=== PATIENT | male | born 1960 | race Caucasian/White ===

== ENCOUNTER 2017-07-12 18:31 | Emergency (ER) | payer MEDICARE, OTHER ==
[~2017-07-12] VITALS: Ht 175.3 cm; Wt 100.0 kg
[2017-07-12 18:35] VITALS: BP 161/104; PULSE 64; RESP 26; TEMP 97.8; O2SAT 99
--- NOTE | 2017-07-12 19:04 | PD ---
Physical Exam Date Seen by Provider: Jul 12, 2017 Time Seen by Provider: 19:02 Narrative 57 yo male here for evaluation of possible kidney stone. Has left flank pain. History of this in the past. Pain is 10/10. Nausea and vomit. No BM issues. Vitals are stable in triage. Awaiting bed placement. Data Data Last Documented VS Vital Signs Date Time Temp Pulse Resp B/P (MAP) Pulse Ox O2 Delivery O2 Flow Rate FiO2 07/12/17 18:35 97.8 64 26 161/104 (123) 99 Room Air [facility] Medical Record Reviewed: Yes Supervised Visit with ARY: No Lan Morejon Jul 12, 2017 19:04
[2017-07-12] MEDS ORDERED: FENO145T2 PO (20:20)
[2017-07-12] MEDS ORDERED: FLUTI110I INH (20:20)
[2017-07-12] MEDS ORDERED: METH-759 PO (20:20)
[2017-07-12] MEDS ORDERED: VIAG100T PO (20:20)
[2017-07-12] MEDS ORDERED: POLY17S PO (20:20)
[2017-07-12] MEDS ORDERED: LYRI200C PO (20:20)
[2017-07-12] MEDS ORDERED: RIZA10TA2 PO (20:20)
[2017-07-12] MEDS ORDERED: DILA2TAB2 PO (20:20)
[2017-07-12] MEDS ORDERED: TAMS0.4C4 PO (20:20)
[2017-07-12] MEDS ORDERED: OXYC-259 PO (20:20)
[2017-07-12] MEDS ORDERED: MARIJUANA PO (20:20)
[2017-07-12] MEDS ORDERED: ACTO150T PO (20:20)
[2017-07-12] MEDS ORDERED: SODIUM CHLORIDE 0.9% FLUSH 10 ML FLUSH IVF PRN (21:00)
[2017-07-12] MEDS ORDERED: KETOROLAC TROMETHAMINE 30 MG/ML (IVP) VIAL IVP ONE (21:00)
[2017-07-12] MEDS ORDERED: ONDANSETRON HCL 4 MG/2 ML VIAL IVP ONE (21:00)
--- NOTE | 2017-07-12 21:07 | PD ---
HPI Chief Complaint: Flank/Kidney Pain Time Seen by Provider: 20:42 Travel History International Travel<30 days: No Contact w/Intl Traveler<30days: No Traveled to known affect area: No History of Present Illness HPI 57-year-old male with PMH of chronic pain, kidney stones presents to the ED for evaluation of 07/12 left-sided flank pain. Sudden onset at 3 PM this today. Accompanied by nausea and vomiting. Patient denies fever, chills, changes in appetite, changes in bowel habits, penile discharge, dysuria. He states that he was recently diagnosed with a right kidney stone at [facility] in [place]. He states that he has outpatient follow-up with the urologist tomorrow at 1:30 PM. He states that his is working in the area and he came down to visit today. He treated at home with 2 mg Dilaudid by mouth with no improvement of symptoms. 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) Social History Alcohol Use: No Tobacco Use: No Substance Use: No Allergies-Medications (Allergen,Severity, Reaction): Coded Allergies: morphine (Verified Allergy, Severe, Itching, 07/12/17) single dose morphine is no issue, multiple doses and he has itching Reported Meds & Prescriptions Reported Meds & Active Scripts Active Reported [Marijuana] 40 Ml PO Relistor (Methylnaltrexone [place]) 150 Mg Tab 450 Mg PO DAILY Polyethylene Glycol 3350 Powder (Polyethylene Glycol) 17 Gram Pow 17 Gm PO DAILY Lyrica (Pregabalin) 200 Mg Cap 200 Mg PO BID Dilaudid (Hydromorphone HCl) 2 Mg Tab 2 Mg PO Q4H PRN Oxycontin (Oxycodone HCl) 10 Mg Tab 20 Mg PO Q12HR Flovent Hfa 12 GM Inh (Fluticasone Propionate) 110 Mcg/Act Inh 2 Puff INH Q6HR Actonel (Risedronate) 150 Mg Tab 150 Mg PO Q30D Rizatriptan (Rizatriptan Benzoate) 10 Mg Tab 1 Tab PO DAILY Viagra (Sildenafil Citrate) 100 Mg Tab 100 Mg PO DAILY PRN Tamsulosin (Tamsulosin HCl) 0.4 Mg Cap 0.4 Mg PO HS Fenofibrate 145 Mg Tab 145 Mg PO DAILY Review of Systems Except as stated in HPI: all other systems reviewed are Neg Physical Exam Narrative GENERAL: Well-nourished, well-developed white male, lying on his left side in no acute distress. SKIN: Focused skin assessment warm/dry. HEAD: Normocephalic. EYES: No scleral icterus. No injection or drainage. NECK: Supple, trachea midline. No JVD or lymphadenopathy. CARDIOVASCULAR: Regular rate and rhythm without murmurs, gallops, or rubs. RESPIRATORY: Breath sounds clear and equal bilaterally. No accessory muscle use. GASTROINTESTINAL: Abdomen soft, nondistended. Mildly tender to palpation in the LLQ. MUSCULOSKELETAL: No cyanosis, or edema. BACK: Nontender without obvious deformity. No CVA tenderness. Data Data Last Documented VS Vital Signs Date Time Temp Pulse Resp B/P (MAP) Pulse Ox O2 Delivery O2 Flow Rate FiO2 07/12/17 22:53 60 16 111/64 (80) 93 Room Air 07/12/17 18:35 97.8 Orders Orders Basic Metabolic Panel (Bmp) (07/12/17 20:55) Complete Blood Count With Diff (07/12/17 20:55) Ua Includes Microscopic (07/12/17 20:55) Ct Abd/Pel W/O Iv Contrast (07/12/17 20:55) Ketorolac Inj (Toradol Inj) (07/12/17 21:00) Ondansetron Inj (Zofran Inj) (07/12/17 21:00) Sodium Chloride 0.9% Flush (Ns Flush) (07/12/17 21:00) ^ Insert Iv (07/12/17 20:55) Hydromorphone Pf Inj (Dilaudid Pf Inj) (07/12/17 22:00) Sodium Chlorid 0.9% 500 Ml Inj (Ns 500 M (07/12/17 22:00) Radiology Film Requests (07/12/17 ) Labs Laboratory Tests Test 07/12/17 21:15 07/12/17 22:40 White Blood Count 11.0 TH/MM3 Red Blood Count 4.77 MIL/MM3 Hemoglobin 13.6 GM/DL Hematocrit 42.0 % Mean Corpuscular Volume 88.1 FL Mean Corpuscular Hemoglobin 28.5 PG Mean Corpuscular Hemoglobin Concent 32.4 % Red Cell Distribution Width 13.7 % Platelet Count 282 TH/MM3 Mean Platelet Volume 9.7 FL Neutrophils (%) (Auto) 84.1 % Lymphocytes (%) (Auto) 8.9 % Monocytes (%) (Auto) 5.9 % Eosinophils (%) (Auto) 0.8 % Basophils (%) (Auto) 0.3 % Neutrophils # (Auto) 9.3 TH/MM3 Lymphocytes # (Auto) 1.0 TH/MM3 Monocytes # (Auto) 0.6 TH/MM3 Eosinophils # (Auto) 0.1 TH/MM3 Basophils # (Auto) 0.0 TH/MM3 CBC Comment DIFF FINAL Differential Comment Blood Urea Nitrogen 21 MG/DL Creatinine 1.35 MG/DL Random Glucose 97 MG/DL Calcium Level 10.1 MG/DL Sodium Level 138 MEQ/L Potassium Level 3.8 MEQ/L Chloride Level 105 MEQ/L Carbon Dioxide Level 25.7 MEQ/L Anion Gap 7 MEQ/L Estimat Glomerular Filtration Rate 55 ML/MIN MDM Medical Decision Making Medical Screen Exam Complete: Yes Emergency Medical Condition: Yes Differential Diagnosis Pyelonephritis versus diverticulitis versus nephroureterolithiasis versus drug seeking behavior versus other Narrative Course 57-year-old male with PMH of chronic pain, kidney stones presents to the ED for evaluation of 10/10 left-sided flank pain. Sudden onset at 3 PM this today. Accompanied by nausea and vomiting. Patient denies fever, chills, changes in appetite, changes in bowel habits, penile discharge, dysuria. He states that he was recently diagnosed with a right kidney stones with hydronephrosis at [facility] in [place]. He states that he has outpatient follow-up with the urologist tomorrow at 1:30 PM. He states that his is working in the area and he came down to visit today. He treated at home with 2 mg Dilaudid by mouth with no improvement of symptoms. He takes Flomax daily for BPH. He is hypertensive in triage, resolved in the exam room. Physical exam reveals a nontoxic-appearing white male in no acute distress. There is some mild tenderness in the left lower quadrant and left flank but no CVA tenderness. IV was established. Patient was administered 30 mg Toradol IV, 1 mg Dilaudid IV. CBC: No leukocytosis noted CMP: BUN 21. Creatinine 1.35. GFR 55 UA: pending CT abdomen and pelvis: Right sided hydronephrosis with a 1 cm stone, possibly 2 separate stones measuring 1 cm total at the right UPJ. 5 mm stone at the left UVJ with mild hydroureter nephrosis. On recheck he reports improvement of his pain. I discussed the results of the workup with the patient. He states that he has follow-up with urology in [place] tomorrow and would like to keep that appointment. I informed him that I would not prescribe him any pain medications. He is agreeable to this plan. UA is pending. Patient was provided a CD copy of his CT report. Patient is signed out to Dr. Oliver at shift change. See her note for disposition. Alma Santa Jul 12, 2017 21:07
--- NOTE | 2017-07-12 21:36 | RADRPT ---
EXAM DATE/TIME: 07/12/2017 21:12 [facility] COMPARISON: No previous studies available for comparison. INDICATIONS : Left flank pain. ORAL CONTRAST: No oral contrast ingested. RADIATION DOSE: 15.94 CTDIvol (mGy) MEDICAL HISTORY : Renal calculi. SURGICAL HISTORY : Fusion, cervical. ENCOUNTER: Initial ACUITY: 1 day PAIN SCALE: 10/10 LOCATION: Left flank TECHNIQUE: Volumetric scanning of the abdomen and pelvis was performed. Using automated exposure control and ad justment of the mA and/or kV according to patient size, radiation dose was kept as low as reasonably achievable to obtain optimal diagnostic quality images. DICOM format image data is available electro nically for review and comparison. The lack of IV contrast limits the diagnosis for certain organ pa thology. FINDINGS: LOWER LUNGS: The visualized lower lungs are clear. LIVER: Homogeneous density without lesion. There is no dilation of the biliary tree. No calcified gallston es. SPLEEN: Normal size without lesion. PANCREAS: Within normal limits. KIDNEYS: There is hydronephrosis of the right kidney. There is several tiny calcified right renal stones. The largest measures about 4 mm in the midpole. There is a prominent stone in the proximal right ureter m easuring at least 1 cm. On the coronal images, there may be 2 stones adjacent to another. The rest of the right ureter is nondilated. There is mild hydronephrosis the left kidney. A few tiny stones are also seen in the left kidney. There appears to be and a 5 mm stone in the distal left ureter. ADRENAL GLANDS: Within normal limits. VASCULAR: There is no aortic aneurysm. BOWEL/MESENTERY: The stomach, small bowel, and colon demonstrate no acute abnormality. There is no free intraperitone al air or fluid. No inflammatory changes. ABDOMINAL WALL: Within normal limits. RETROPERITONEUM: There is no lymphadenopathy. BLADDER: No wall thickening or mass. REPRODUCTIVE: Within normal limits. INGUINAL: There is no lymphadenopathy or hernia. MUSCULOSKELETAL: Within normal limits for patient age. CONCLUSION: 1. There is hydronephrosis the right kidney. There is a 1 cm stone in the proximal right ureter just past the UPJ causing obstruction. On the coronal images, there may be 2 stones adjacent to another in the proximal right ureter.. 2. There is a 5 mm stone in the distal left ureter at the left UVJ. Mild hydronephrosis the left kidn ey. 3. Several tiny nonobstructing bilateral renal calculi are demonstrated. Alex Liu MD on July 12, 2017 at 21:30 Board Certified Radiologist. This report was verified electronically.
[2017-07-12 21:38] LABS: BICARBONATE 25.7 MEQ/L (21.0-32.0); POTASSIUM 3.8 MEQ/L (3.5-5.1)
[2017-07-12 21:45] LABS: AUTOMATED NEUTROPHIL # 9.3 TH/MM3 (1.8-7.7); BASOPHIL % 0.3 % (0.0-2.0); EOSINOPHIL # 0.1 TH/MM3 (0-0.4); EOSINOPHIL % 0.8 % (0.0-4.0); HEMO FLAGS DIFF FINAL; LYMPH % 8.9 % (9.0-44.0); MEAN CELL VOLUME 88.1 FL (80.0-100.0); MEAN CORPUSCULAR HEMOGLOBIN 28.5 PG (27.0-34.0); MEAN CORPUSCULAR HGB CONC 32.4 % (32.0-36.0); MONO % 5.9 % (0.0-8.0); NEUT % 84.1 % (16.0-70.0); PLATELET COUNT 282 TH/MM3 (150-450); RED BLOOD COUNT 4.77 MIL/MM3 (4.50-5.90); RED CELL DISTRIBUTION WIDTH 13.7 % (11.6-17.2)
[2017-07-12] MEDS ORDERED: HYDROmorphone HCL PF 1 MG/ML VIAL IV PUSH ONE (22:00)
[2017-07-12] MEDS ORDERED: SODIUM CHLORID 0.9% 500 ML INJ 500 ML IV ONE (22:00)
[2017-07-12 22:53] VITALS: BP 111/64; PULSE 60; RESP 16; O2SAT 93
[2017-07-12 23:02] LABS: BLOOD, URINE SMALL (NEG); GLUCOSE,URINE NEG (NEG); KETONE, URINE NEG (NEG); NITRITE,URINE NEG (NEG); PH, URINE 5.5 (5.0-8.5); URINE COLOR YELLOW (YELLW/STRAW)
--- NOTE | 2017-07-12 23:06 | PD ---
Physical Exam Date Seen by Provider: Jul 12, 2017 Time Seen by Provider: 22:58 Narrative accepted in transfer of care from Alma Santa PA-C Data Data Last Documented VS Vital Signs Date Time Temp Pulse Resp B/P (MAP) Pulse Ox O2 Delivery O2 Flow Rate FiO2 07/13/17 00:41 07/12/17 22:53 60 16 93 Room Air 07/12/17 18:35 97.8 Orders Orders Basic Metabolic Panel (Bmp) (07/12/17 20:55) Complete Blood Count With Diff (07/12/17 20:55) Ua Includes Microscopic (07/12/17 20:55) Ct Abd/Pel W/O Iv Contrast (07/12/17 20:55) Ketorolac Inj (Toradol Inj) (07/12/17 21:00) Ondansetron Inj (Zofran Inj) (07/12/17 21:00) Sodium Chloride 0.9% Flush (Ns Flush) (07/12/17 21:00) ^ Insert Iv (07/12/17 20:55) Hydromorphone Pf Inj (Dilaudid Pf Inj) (07/12/17 22:00) Sodium Chlorid 0.9% 500 Ml Inj (Ns 500 M (07/12/17 22:00) Radiology Film Requests (07/12/17 ) Urine Culture (07/12/17 23:20) Levofloxacin (Levaquin) (07/12/17 23:30) Ed Discharge Order (07/12/17 23:55) Labs Laboratory Tests Test 07/12/17 21:15 07/12/17 22:40 White Blood Count 11.0 TH/MM3 Red Blood Count 4.77 MIL/MM3 Hemoglobin 13.6 GM/DL Hematocrit 42.0 % Mean Corpuscular Volume 88.1 FL Mean Corpuscular Hemoglobin 28.5 PG Mean Corpuscular Hemoglobin Concent 32.4 % Red Cell Distribution Width 13.7 % Platelet Count 282 TH/MM3 Mean Platelet Volume 9.7 FL Neutrophils (%) (Auto) 84.1 % Lymphocytes (%) (Auto) 8.9 % Monocytes (%) (Auto) 5.9 % Eosinophils (%) (Auto) 0.8 % Basophils (%) (Auto) 0.3 % Neutrophils # (Auto) 9.3 TH/MM3 Lymphocytes # (Auto) 1.0 TH/MM3 Monocytes # (Auto) 0.6 TH/MM3 Eosinophils # (Auto) 0.1 TH/MM3 Basophils # (Auto) 0.0 TH/MM3 CBC Comment DIFF FINAL Differential Comment Blood Urea Nitrogen 21 MG/DL Creatinine 1.35 MG/DL Random Glucose 97 MG/DL Calcium Level 10.1 MG/DL Sodium Level 138 MEQ/L Potassium Level 3.8 MEQ/L Chloride Level 105 MEQ/L Carbon Dioxide Level 25.7 MEQ/L Anion Gap 7 MEQ/L Estimat Glomerular Filtration Rate 55 ML/MIN Urine Color YELLOW Urine Turbidity CLEAR Urine pH 5.5 Urine Specific [place] 1.014 Urine Protein NEG mg/dL Urine Glucose (UA) NEG mg/dL Urine Ketones NEG mg/dL Urine Occult Blood SMALL Urine Nitrite NEG Urine Bilirubin NEG Urine Urobilinogen LESS THAN 2.0 MG/DL Urine Leukocyte Esterase TRACE Urine RBC 12 /hpf Urine WBC 9 /hpf MDM Medical Record Reviewed: Yes Supervised Visit with ARY: Yes Interpretation(s) UA: 9 wbc's cx ordered Last Impressions Abdomen/Pelvis CT 07/12/172054 Signed Impressions: Service Date/Time: Wednesday, July 12, 2017 21:12 - CONCLUSION: 1. There is hydronephrosis the right kidney. There is a 1 cm stone in the proximal right ureter just past the UPJ causing obstruction. On the coronal images, there may be 2 stones adjacent to another in the proximal right ureter.. 2. There is a 5 mm stone in the distal left ureter at the left UVJ. Mild hydronephrosis the left kidney. 3. Several tiny nonobstructing bilateral renal calculi are demonstrated. Alex Liu MD CBC & BMP Diagram 07/12/17 21:15 Calcium Level 10.1 Vital Signs Date Time Temp Pulse Resp B/P (MAP) Pulse Ox O2 Delivery O2 Flow Rate FiO2 07/12/17 22:53 60 16 111/64 (80) 93 Room Air 07/12/17 20:08 67 15 07/12/17 18:35 97.8 64 26 161/104 (123) 99 Room Air Differential Diagnosis Renal colic, obstructive uropathy, UTI, pyelonephritis, renal insufficiency, sepsis Narrative Course Patient with history of kidney stones with recent diagnosis within the past 3 week of obstructive uropathy on the right being followed closely by his primary urologist. Patient visiting [facility] and developed left flank pain identified here to have a 5 mm distal ureteral stone with mild hydronephrosis. Patient has had symptom relief with Toradol fluids and one time dose of Dilaudid. Patient is desirous of being discharged from the hospital in order to keep his plan/schedule appointment with his local urologist tomorrow. Appointment is scheduled at 1:30 PM. Patient does not report has not reported any fever or chills and is currently not taking any antibiotic. Patient identified on urinalysis to have 9 WBCs therefore culture has been ordered; patient given first dose of antibiotic in the emergency department; patient reports he has an appointment with his urologist and would rather be seen by his urologist and stay for admission; patient given Levaquin 500 mg times one dose. Patient is otherwise stable for outpatient management and close follow-up with his urologist. Patient encouraged to return the emergency department for any concerns or change in his scheduled appointment with his urologist. Diagnosis Primary Impression: Renal colic on left side Additional Impressions: Obstructive uropathy Renal insufficiency Referrals: Urologist 1 day keep current scheduled appointment as planned 07/13/17 Patient Instructions: Narcotic given in the ED, General Instructions Additional Instruction: Increase fluid hydration Take medication as prescribed as needed for nausea and/or vomiting Keep appointment with your urologist as already scheduled at 1:30 p.m. 07/13/17 Return to the emergency department for any concerns or change in condition Med/Other Pt SpecificInfo: Prescription(s) given Scripts Ondansetron Odt (Zofran Odt) 4 Mg Tab 4 MG SL Q6HR Y for Nausea/Vomiting, #7 TAB 0 Refills Prov: Cecy Oliver MD 07/12/17 Cephalexin (Keflex) 500 Mg Capsule 500 MG PO Q6H for Infection for 7 Days, #28 CAP 0 Refills Prov: Cecy Oliver MD 07/12/17 Disposition: 01 DISCHARGE HOME Condition: Stable Cecy Oliver MD Jul 12, 2017 23:06
[2017-07-12] MEDS ORDERED: CIPR-9 PO (23:22)
[2017-07-12] MEDS ORDERED: LEVOFLOXACIN 500 MG TAB PO ONE (23:30)
[2017-07-12] MEDS ORDERED: CEPH-460 PO (23:38)
[2017-07-12] MEDS ORDERED: ZOFR4TAB3 SL (23:39)
== END 2017-07-13 00:46 | disposition home or self-care (01) ==
LOC: NEPC 18:31
DX: N23 Unspecified renal colic (principal); N13.9 Obstructive and reflux uropathy, unspecified; N28.9 Disorder of kidney and ureter, unspecified; I10 Essential (primary) hypertension; Z87.442 Personal history of urinary calculi
CPT/HCPCS: 74176; 80048; 81001; 85025; 87086; 96374; 96375; 99285; J1170; J1885; J2405; J7040